=== PATIENT | female | born 1955 | race Caucasian/White ===

== ENCOUNTER → 2016-11-18 | Outpatient (CLI) | payer OTHER ==
[~2016-11-18] MED LIST: ALBU8.5H3 INH; ASPI-650 PO; BUDE10.2 INH; CHOL2000 PO; CLON-364 PO; ESTR1TAB15 PO; GLUC-121 PO; LISI1TAB5 PO; MEPE50TA PO; SALM50DI INH; VENL150C PO; VENL225T PO; VENL75CA PO
== END | disposition home or self-care (01) ==
LOC: CFH 11:26
PROVIDERS: ATTEND Family Medicine
DX: R05 Cough (principal)
CPT/HCPCS: 71020

== ENCOUNTER → 2017-08-11 | Outpatient (CLI) | payer OTHER ==
[~2017-08-11] MED LIST changes: -ALBU8.5H3 INH; +ALBU8.5H8 INH
== END | disposition home or self-care (01) ==
LOC: RAD 15:03
PROVIDERS: ATTEND Family Medicine
DX: R05 Cough (principal); M41.84 Other forms of scoliosis, thoracic region; Z90.49 Acquired absence of other specified parts of digestive tract
CPT/HCPCS: 71046